=== PATIENT | male | born 1990 | race Two or more races ===

== ENCOUNTER 2017-10-30 01:59 | Emergency (ER) | payer MEDICAID ==
[~2017-10-30] VITALS: Ht 175.3 cm; Wt 80.7 kg
[2017-10-30] MEDS ORDERED: INHALER (02:14)
--- NOTE | 2017-10-30 02:24 | NUR ---
Patient discharged to home in stable conditon. Written and verbal after care instructions given. Patient verbalizes understanding of instructions.
[2017-10-30] MEDS ORDERED: SULFAMETH/TRIMETH 800/160 MG TABLET PO ONE (02:30)
[2017-10-30] MEDS ORDERED: CEPHALEXIN MONOHYDRATE 500 MG CAPSULE PO ONE (02:30)
[2017-10-30] MEDS ORDERED: CEPHALEXIN MONOHYDRATE 500 MG CAPSULE ONE (02:37)
[2017-10-30] MEDS ORDERED: SULFAMETH/TRIMETH 800/160 MG TABLET ONE (02:37)
== END 2017-10-30 02:25 | disposition home or self-care (01) ==
LOC: ER 02:14
DX: L03.113 Cellulitis of right upper limb (principal); L02.413 Cutaneous abscess of right upper limb; J45.909 Unspecified asthma, uncomplicated
CPT/HCPCS: 99283; A4663

== ENCOUNTER 2022-04-02 15:34 | Emergency (ER) | payer MEDICAID ==
[~2022-04-02] VITALS: Ht 167.6 cm; Wt 88.0 kg
[~2022-04-02 15:34] MED LIST: INHALER
[2022-04-02] MEDS ORDERED: ALBUTEROL SULFATE 8 GM HFA.AER.AD IH PRN (15:45)
[2022-04-02] MEDS ORDERED: ALBU0.63 IH (15:51)
[2022-04-02] MEDS ORDERED: ALBUTEROL SULFATE 8 GM HFA.AER.AD ONE (15:53)
--- NOTE | 2022-04-02 16:02 | NUR ---
BIB [facility] for potential drug overdose. Patient will not say what drug he took but is able to state his name. Placed on a monitor. VSS
[2022-04-02 16:21] LABS: ETHANOL < 3 MG/DL (0-0)
[2022-04-02 16:27] LABS: ALANINE AMINOTRANSFERASE 56 U/L (16-63); ALKALINE PHOSPHATASE 87 U/L (50-136); ASPARTATE AMINOTRANSFERASE 41 U/L (15-37); BILIRUBIN,DIRECT 0.3 mg/dL (0.0-0.2); BILIRUBIN,TOTAL 1.5 mg/dL (0.2-1.0); CREATININE 3.5 mg/dL (0.6-1.3); GLUCOSE 117 mg/dL (74-106); TOTAL PROTEIN, SERUM 8.5 g/dL (6.4-8.2); UREA NITROGEN, BLOOD 74 mg/dL (7-18)
[2022-04-02 16:29] LABS: CHLORIDE 65 mmol/L (98-107); POTASSIUM 2.3 mmol/L (3.5-5.1)
[2022-04-02 16:30] LABS: ACETAMINOPHEN < 2.0 ug/mL (10-30); CARBON DIOXIDE 41 mmol/L (21-32)
[2022-04-02] MEDS ORDERED: IV NORMAL SALINE 500 ML BAG IV ONE (16:30)
[2022-04-02] MEDS ORDERED: POTASSIUM CHLORIDE 50 ML ONE (16:37)
[2022-04-02] MEDS: POTASSIUM CHLORIDE 50 ML IV SCH ×3 (16:49→18:36)
[2022-04-02 17:00] LABS: CREATINE KINASE, TOTAL 415 U/L (39-308); LIPASE 53 U/L (73-393)
[2022-04-02 17:25] LABS: HEMATOCRIT 51.8 % (36.7-47.1); MEAN CORPUSCULAR HEMOGLOBIN 31.6 uug (23.8-33.4); PLATELET COUNT (AUTO) 342 K/uL (152-348)
--- NOTE | 2022-04-02 18:01 | NUR ---
aprox. 750 cc of urine out, sample taken to lab.
[2022-04-02] MEDS ORDERED: POTASSIUM CHLORIDE 150 ML ONE (18:07)
--- NOTE | 2022-04-02 18:07 | NUR ---
First bag of 10 meq Kcl infused. Second bag of Kcl 10 meq IV started
[2022-04-02 18:11] LABS: *BILIRUBIN,URIN NEGATIVE (NEGATIVE); *CLARITY,URINE CLEAR (CLEAR); *COLOR,URINE YELLOW (YELLOW); *KETONES,URINE TRACE (NEGATIVE); *UROBILINOGEN,URINE 0.2 E.U./dl (NORMAL); LEUKOCYTE ESTERASE ,URINE NEGATIVE (NEGATIVE); NITRITE, URINE NEGATIVE (NEGATIVE); UGLUCOSE NEGATIVE (NEGATIVE)
[2022-04-02 18:21] LABS: *BLOOD, URINE TRACE (NEGATIVE)
[2022-04-02 18:25] LABS: BACTERIA,URINE NONE SEEN /HPF (NONE SEEN); SQUAMOUS EPITHELIAL CELL,UR NONE SEEN /HPF (NONE SEEN); WBC,URINE 0-3 /HPF (0-3)
[2022-04-02 18:26] LABS: *AMPHETAMINE, URINE NEGATIVE (NEGATIVE); *CANNABINOID, URINE POSITIVE (NEGATIVE); *COCCAINE, URINE NEGATIVE (NEGATIVE); *OPIATE, URINE NEGATIVE (NEGATIVE); *PHENCYCLIDINE SCREEN,URINE NEGATIVE (NEGATIVE)
--- NOTE | 2022-04-02 18:28 | NUR ---
PER DR JACKSON, PATIENT IS TO BE TRANSFERRED TO [facility]. AWAITING FOR CALL BACK
[2022-04-02 18:57] LABS: LYMPHOCYTES % (MANUAL) 5 % (20-40); MONOCYTES % (MANUAL) 6 % (2-10); NEUTROPHILS % (MANUAL) 89 % (42-75)
--- NOTE | 2022-04-02 19:24 | NUR ---
hAND OFF REPORT GIVEN TO [facility]
--- NOTE | 2022-04-02 19:33 | NUR ---
Received brief report from transmitter engineer in charge using sbar method. All questions answered. at bedside to assess pt. Pt seems to be aaox1, wont answer any questions, appears to be faking it, because pt answers some questions and not others. Asked if he is hungry and if he wanted to have dinner, and got no answer. Also when asked about time, date, location, or president, got no answer. VSS, 4th bag of KCL hung with second bag of NS 1L. Infusing now. Pt does not appear to be in any pain, sob, n/v, or distress. Pt resting comfortably in pos of comfort, supine with hob at 15 degress
--- NOTE | 2022-04-02 23:24 | NUR ---
Spoke with case monitor Natalie. pt will be transfered to [facility] Room 214A. Number for report is [phone]. Nurse Hendrix.
--- NOTE | 2022-04-03 00:20 | NUR ---
Called report to [facility] from [facility]. Thorough report given using SBAR method, all questions answered. Greenlight obtained. awaiting private amb transport, ETA [id number]. Pt being prepared for transport to [facility]. VSS, PE WNL, pt sleeping in pos of comfort with audible snorring. easily arrousable. supine hob at 10 to 15 degrees. 125/75, 75bpm, 98% RA, 18 rpm, PERRLA, no oral lesions or missing teeth, no jvd, no trach deviation, good distal pulses x 4ext, Lungs ctab, NSR without ectopy, RRR, normal s1s2 no m/g/r, afebrile. Pt seems slightly more awake then at begining of shift, however, still very somnolencent.
--- NOTE | 2022-04-03 00:33 | NUR ---
vessel slag worker just arrived to order picker pt, [facility] will be loading up pt now.
--- NOTE | 2022-04-03 00:53 | NUR ---
Pt was just wheeled outof dept on amb stretcher, all belongings accounted for, VSS, PE WNL, B, no complaints of pain, sob, n/v, or discomfort. Accepting facility [facility] expecting him. Pt seems a little more alert then begining of shift. opens eyes, answers questions and follows commands. Still a little sleepy but easily arounsable. No s/sx of distress present.
[2022-04-03 00:58] VITALS: BP 126/75
== END 2022-04-03 00:58 | disposition short-term general hospital (02) ==
LOC: ER 15:34
DX: E87.1 Hypo-osmolality and hyponatremia (principal); E87.6 Hypokalemia; R11.2 Nausea with vomiting, unspecified; E87.8 Other disorders of electrolyte and fluid balance, not elsewhere classified; K59.00 Constipation, unspecified; R33.9 Retention of urine, unspecified; T65.91XA Toxic effect of unspecified substance, accidental (unintentional), initial encounter; R53.83 Other fatigue; Y92.89 Other specified places as the place of occurrence of the external cause; E86.0 Dehydration; J45.901 Unspecified asthma with (acute) exacerbation; Z20.822 Contact with and (suspected) exposure to COVID-19
CPT/HCPCS: 36415; 71045; 74176; 80048; 80076; 80299; 80307; 80320; 81001; 82550; 83605; 83690; 85007; 85025; 87426; 96365; 96366; 99291; J3480 ×2; J7040; 70030-TC; A4663; G0480; J3535

== ENCOUNTER 2025-05-25 07:55 | Emergency (ER) | payer MEDICAID ==
[~2025-05-25] VITALS: Ht 175.3 cm; Wt 72.1 kg
[~2025-05-25 07:55] MED LIST changes: +ALBU0.63 IH
[2025-05-25 07:58] VITALS: O2SAT 97
== END 2025-05-25 09:00 | disposition left against medical advice (07) ==
LOC: ER 07:55
DX: Z76.0 Encounter for issue of repeat prescription (principal); Z53.21 Procedure and treatment not carried out due to patient leaving prior to being seen by health care provider
CPT/HCPCS: A4606; A4663